=== PATIENT | female | born 1990 | race Caucasian/White ===

== ENCOUNTER 2022-10-21 18:23 | Observation (INO) | payer OTHER ==
[~2022-10-21] VITALS: Ht 154.9 cm; Wt 95.7 kg
== END 2022-10-21 22:35 | disposition home or self-care (01) ==
LOC: SPU 18:23
PROVIDERS: ADMIT Specialist; ATTEND Specialist
DX: O26.853 Spotting complicating pregnancy, third trimester (principal); O26.893 Other specified pregnancy related conditions, third trimester; R10.2 Pelvic and perineal pain; Z3A.28 28 weeks gestation of pregnancy
CPT/HCPCS: 76815; 81002; G0378

== ENCOUNTER 2022-10-28 17:24 | Observation (INO) | payer OTHER ==
[~2022-10-28] VITALS: Ht 154.9 cm; Wt 95.7 kg
[2022-10-28] MEDS ORDERED: MORPHINE SULFATE 10 MG/ML VIAL SUBCUT ONE (18:15)
[2022-10-28 19:06] LABS: BILIRUBIN,URINE NEGATIVE (NEGATIVE); BLOOD, URINE 3+ (NEGATIVE); COLOR,URINE YELLOW (YELLOW); GLUCOSE,URINE NEGATIVE (NEGATIVE); KETONES,URINE NEGATIVE (NEGATIVE); LEUKOCYTE ESTERASE ,URINE NEGATIVE (NEGATIVE); NITRITE, URINE NEGATIVE (NEGATIVE); PH,URINE 7.5 (5.0-8.0); PROTEIN URINE 2+ (NEGATIVE); UROBILINOGEN,URINE 0.2 (0.2-1.0)
[2022-10-28 19:09] LABS: CLARITY/URINE HAZY (CLEAR)
[2022-10-28 19:21] LABS: BACTERIA,URINE FEW /HPF (None Seen); MUCUS,URINE None Seen /LPF (None Seen); RBC,URINE >100 /HPF (0-3)
== END 2022-10-28 21:54 | disposition home or self-care (01) ==
LOC: SPU 17:24
PROVIDERS: ADMIT Specialist; ATTEND Specialist
DX: O99.891 Other specified diseases and conditions complicating pregnancy (principal); M54.9 Dorsalgia, unspecified; O26.893 Other specified pregnancy related conditions, third trimester; R35.0 Frequency of micturition; Z3A.29 29 weeks gestation of pregnancy
CPT/HCPCS: 76770; 96372; 81000; 87086; J2270; G0378

== ENCOUNTER 2022-11-07 20:35 | Observation (INO) | payer OTHER ==
[~2022-11-07] VITALS: Ht 154.9 cm; Wt 97.1 kg
== END 2022-11-07 21:45 | disposition home or self-care (01) ==
LOC: SPU 20:35
PROVIDERS: ADMIT Specialist; ATTEND Specialist
DX: O36.8130 Decreased fetal movements, third trimester, not applicable or unspecified (principal); Z3A.30 30 weeks gestation of pregnancy
CPT/HCPCS: 81002; G0379; G0378

== ENCOUNTER 2023-01-04 15:53 | Inpatient (IN) | payer OTHER ==
[~2023-01-04] VITALS: Ht 154.9 cm; Wt 101.6 kg
[2023-01-04] MEDS ORDERED: OXYTOCIN/0.9 % SODIUM CHLORIDE 1,000 ML IV SCH (18:15)
[2023-01-04] MEDS ORDERED: TERBUTALINE SULFATE 1 MG/ML VIAL SUBCUT ONE (18:15)
[2023-01-04] MEDS ORDERED: NALBUPHINE HCL 10 MG/ML AMP IM PRN (18:15)
[2023-01-04] MEDS ORDERED: LR 1,000 ML IV SCH (19:00)
[2023-01-04] MEDS ORDERED: LR 1,000 ML IV ONE (19:00)
[2023-01-04 19:31] LABS: BASOPHILS % (AUTO) 0.5 % (0.0-2.0); EOSINOPHILS # (AUTO) 0.1 K/uL (0.0-0.4); EOSINOPHILS % (AUTO) 0.7 % (0.0-4.0); HEMATOCRIT 38.5 % (36-48); HEMOGLOBIN 13.3 g/dL (12.0-16.0); LYMPHOCYTES # (AUTO) 2.5 K/uL (1.0-5.5); LYMPHOCYTES % (AUTO) 23.3 % (20.5-51.5); MEAN CORPUSCULAR HEMOGLOBIN 31 pg (27-31); MEAN CORPUSCULAR HGB CONC 35 % (32-36); MEAN CORPUSCULAR VOLUME 90 fL (79.0-98.0); MONOCYTES # (AUTO) 0.7 K/uL (0.0-1.0); MONOCYTES % (AUTO) 6.4 % (1.7-9.3); NEUTROPHILS # (AUTO) 7.3 K/uL (1.8-7.7); NEUTROPHILS % (AUTO) 69.1 % (40.0-70.0); PLATELET COUNT (AUTO) 255 K/uL (130-430); RED BLOOD CELL COUNT(AUTO) 4.26 MIL/uL (4.2-6.2); RED CELL DISTRIBUTION WIDTH 13.5 % (9.0-15.0); WHITE BLOOD COUNT (AUTO) 10.6 K/uL (4.8-10.8)
[2023-01-04] MEDS ORDERED: fentaNYL CITRATE/PF 100 MCG/2 ML AMP ONE (22:55)
[2023-01-04] MEDS ORDERED: ROPIVACAINE HCL/PF 0.2% 200 ML ONE (22:55)
[2023-01-04] MEDS ORDERED: FENT2mCg/mL-ROPIVA0.2%/NS EPID 200 ML EP SCH (23:00)
[2023-01-04] MEDS ORDERED: DIPHENHYDRAMINE INJ 50 MG/ML VIAL IVP PRN (23:00)
[2023-01-04] MEDS ORDERED: NALOXONE HCL 0.4 MG/ML AMP (NARCAN) IVP PRN (23:00)
[2023-01-04] MEDS ORDERED: ONDANSETRON HCL 4 MG/2 ML VIAL IVP PRN (23:00)
[2023-01-05] MEDS ORDERED: LIGHT MINERAL OIL 10 ML VIAL MC ONE (04:18)
[2023-01-05] MEDS ORDERED: NALOXONE HCL 0.4 MG/ML AMP (NARCAN) ONE (04:19)
[2023-01-05] MEDS ORDERED: LIDOCAINE PF 1% 30ML(POUR BTL) INJ ONE (04:19)
[2023-01-05] MEDS ORDERED: MEASLES,MUMPS&RUBELLA VACC/PF 12500 UNIT/0.5 ML VIAL SUBQ PRN (14:15)
[2023-01-05] MEDS ORDERED: DERMOPLAST SPRAY TP PRN (14:15)
[2023-01-05] MEDS ORDERED: OXYTOCIN/0.9 % SODIUM CHLORIDE 1,000 ML IV SCH (14:15)
[2023-01-05] MEDS ORDERED: WITCH HAZEL LEAF 1 MED.PAD MED.PAD TP PRN (14:15)
[2023-01-05] MEDS: IBUPROFEN 600 MG TABLET PO SCH (17:47)
[2023-01-05 20:45] VITALS: BP_SYST 128
[2023-01-06] MEDS: IBUPROFEN 600 MG TABLET PO SCH ×5 (00:39→23:47)
[2023-01-06] MEDS ORDERED: OXYCODONE/ACETAMINOPHEN *10*mg/325 mg TABLET PO PRN (00:45)
[2023-01-06] MEDS: OXYCODONE/ACETAMINOPHEN 5-325 TABLET PO PRN ×2 (01:01→16:06)
[2023-01-06 07:47] LABS: BASOPHILS % (AUTO) 0.3 % (0.0-2.0); EOSINOPHILS # (AUTO) 0.1 K/uL (0.0-0.4); EOSINOPHILS % (AUTO) 0.5 % (0.0-4.0); HEMOGLOBIN 10.6 g/dL (12.0-16.0); LYMPHOCYTES % (AUTO) 18.8 % (20.5-51.5); MEAN CORPUSCULAR HEMOGLOBIN 31 pg (27-31); MEAN CORPUSCULAR HGB CONC 34 % (32-36); MEAN CORPUSCULAR VOLUME 91 fL (79.0-98.0); MONOCYTES # (AUTO) 0.9 K/uL (0.0-1.0); MONOCYTES % (AUTO) 8.1 % (1.7-9.3); NEUTROPHILS # (AUTO) 7.7 K/uL (1.8-7.7); NEUTROPHILS % (AUTO) 72.3 % (40.0-70.0); PLATELET COUNT (AUTO) 193 K/uL (130-430); RED BLOOD CELL COUNT(AUTO) 3.41 MIL/uL (4.2-6.2); RED CELL DISTRIBUTION WIDTH 13.6 % (9.0-15.0); WHITE BLOOD COUNT (AUTO) 10.6 K/uL (4.8-10.8)
[2023-01-06] MEDS ORDERED: DOCUSATE SODIUM 100 MG CAPSULE PO SCH (09:00)
[2023-01-06 20:19] VITALS: BP_SYST 127
[2023-01-06] MEDS ORDERED: SENNOSIDES 8.6 MG TABLET PO SCH (21:00)
[2023-01-07] MEDS: IBUPROFEN 600 MG TABLET PO SCH (06:28)
--- NOTE | 2023-01-09 10:11 | NUR ---
[employer] re: depression Telephone call made to the patient to discuss her recent [place] Depression Score. The patient scored an 11, however anything over a 10 requires for a social service consult. There was no answer on the patient's phone, however a message was left for a returned phone call. Upon speaking with the patient, a complete assessment will be completed.
--- NOTE | 2023-01-10 11:00 | NUR ---
F/U call made to the patient to discus her [place] Depression Score. I introduced myself to patient and explained why I was calling. The patient was in agreement to speaking with me. I reviewed the test and the way the scoring goes, which correlates if there is and is not a social service consult involved. The patient was in agreement to completing a social service assessment with me. Per patient, she had her reside locally with her mother in law. This is her first child with her . She states her strongest support is her and her mother in law. She states the home has establish a good routine that is working now. The patient indicated she did have a baby shower and that she has the necessary provisions in place for the baby. The mother states she is nursing the baby, and nursing is going well. As to her mental health, the patient does have a diagnosis of anxiety and depression. She is under the care of a psychologist whom she sees routinely on a monthly basis. She takes Lexapro that is managed by her psychologist. Per patient, her triggers to her depression and anxiety were related to having feelings of being overwhelmed assuming circumstances would never end. She states the Lexapro does help with suppressing her thoughts and not letting them run too far out. She states she is able to think about situations and mentally work through her feelings. Per patient, she does not have thoughts of suicide or self harm to herself or others. I discussed resources related to post depression. The patient was interested in the and Post Support Group service offered through [facility]. I also inquired about the [facility] Home Visit program. I explained the program, and the services that the program provides, however the patient was not as interested in it. I did mail the patient information on both programs and advised her that should she need additional assistance or services, she could contact me with the contact information on my business card. I confirmed her mailing address and advised hr tht the resources will go out in the hospital mail tomorrow.
== END 2023-01-07 13:00 | disposition home or self-care (01) | DRG 806 ==
LOC: SPU 15:53 → OBSVTOIN 18:05
PROVIDERS: ADMIT Specialist; ATTEND Specialist
PROC: 10D07Z6 Extraction of Products of Conception, Vacuum, Via Natural or Artificial Opening (ICD-10-PCS; principal; 2023-01-05)
PROC: 3E033VJ Introduction of Other Hormone into Peripheral Vein, Percutaneous Approach (ICD-10-PCS; 2023-01-05)
PROC: 0HQ9XZZ Repair Perineum Skin, External Approach (ICD-10-PCS; 2023-01-05)
PROC: 3E0R3BZ Introduction of Anesthetic Agent into Spinal Canal, Percutaneous Approach (ICD-10-PCS; 2023-01-05)
PROC: 00HU33Z Insertion of Infusion Device into Spinal Canal, Percutaneous Approach (ICD-10-PCS; 2023-01-05)
DX: O42.02 Full-term premature rupture of membranes, onset of labor within 24 hours of rupture (principal); O41.03X0 Oligohydramnios, third trimester, not applicable or unspecified; Z37.0 Single live birth; Z3A.39 39 weeks gestation of pregnancy; O70.0 First degree perineal laceration during delivery
CPT/HCPCS: 36415; 76815; 81002; 85025; 94760; G0378; J2001; J2310; J2590; J3010

== ENCOUNTER 2024-06-16 15:52 | Emergency (ER) | payer OTHER ==
[~2024-06-16] VITALS: Ht 154.9 cm; Wt 98.0 kg
[2024-06-16 15:52] VITALS: BP_SYST 117; PULSE 138; RESP 19; TEMP 97; O2SAT 84
[2024-06-16] MEDS: ONDANSETRON 4 MG ODT TAB PO ONE (16:15)
[2024-06-16 16:23] LABS: BASOPHILS % (AUTO) 0.2 % (0.0-2.0); EOSINOPHILS % (AUTO) 0.2 % (0.0-4.0); HEMATOCRIT 37.2 % (36-48); LYMPHOCYTES # (AUTO) 0.7 K/uL (1.0-5.5); LYMPHOCYTES % (AUTO) 7.4 % (20.5-51.5); MEAN CORPUSCULAR HEMOGLOBIN 30 pg (27-31); MEAN CORPUSCULAR HGB CONC 35 % (32-36); MEAN CORPUSCULAR VOLUME 87 fL (79.0-98.0); MONOCYTES # (AUTO) 0.4 K/uL (0.0-1.0); MONOCYTES % (AUTO) 3.5 % (1.7-9.3); NEUTROPHILS % (AUTO) 88.7 % (40.0-70.0); PLATELET COUNT (AUTO) 303 K/uL (130-430); RED BLOOD CELL COUNT(AUTO) 4.26 MIL/uL (4.2-6.2); RED CELL DISTRIBUTION WIDTH 13.7 % (9.0-15.0); WHITE BLOOD COUNT (AUTO) 10.1 K/uL (4.8-10.8)
[2024-06-16 16:42] LABS: ALBUMIN 2.8 g/dL (3.4-4.8); CALCIUM 8.7 mg/dL (8.4-11.0); CREATININE 0.56 mg/dL (0.55-1.30); POTASSIUM 4.3 mmol/L (3.5-5.1); TOTAL BILIRUBIN 0.7 mg/dL (0.0-1.0); TOTAL PROTEIN, SERUM 6.3 g/dL (6.4-8.3)
[2024-06-16 17:54] LABS: BILIRUBIN,URINE NEGATIVE (NEGATIVE); BLOOD, URINE NEGATIVE (NEGATIVE); CLARITY/URINE SL CLOUDY (CLEAR); COLOR,URINE YELLOW (YELLOW); GLUCOSE,URINE NEGATIVE (NEGATIVE); KETONES,URINE 3+ (NEGATIVE); LEUKOCYTE ESTERASE ,URINE NEGATIVE (NEGATIVE); NITRITE, URINE NEGATIVE (NEGATIVE); PROTEIN URINE TRACE (NEGATIVE); UROBILINOGEN,URINE 0.2 (0.2-1.0)
[2024-06-16] MEDS: METOCLOPRAMIDE HCL 10 MG/2 ML VIAL IM ONE (17:59)
[2024-06-16 18:27] LABS: RBC,URINE 0-3 /HPF (0-3); WBC,URINE 0-3 /HPF (0-3)
[2024-06-16 18:28] LABS: BACTERIA,URINE FEW /HPF (None Seen); MUCUS,URINE 2+ /LPF (None Seen)
[2024-06-16 18:35] VITALS: BP_SYST 117; PULSE 138; RESP 19; TEMP 97; O2SAT 84
[2024-06-16] MEDS ORDERED: ONDA-8 TL (18:55)
== END 2024-06-16 19:02 | disposition home or self-care (01) ==
LOC: SED 15:52
DX: O00.00 Abdominal pregnancy without intrauterine pregnancy (principal); O21.2 Late vomiting of pregnancy; Z3A.29 29 weeks gestation of pregnancy
CPT/HCPCS: 99285; 76805; 80053; 81001; 85025; 36415; 96372; 81000; 81015; Q0162; J2765